=== PATIENT | female | born 2000 | race Caucasian/White ===

== ENCOUNTER 2023-03-16 12:14 | Emergency (ER) | payer SELFPAY ==
[~2023-03-16] VITALS: Ht 167.6 cm; Wt 56.7 kg
[2023-03-16 12:21] VITALS: BP 170/99
[2023-03-16] MEDS ORDERED: Voltaren100 GM TOP (12:51)
[2023-03-16] MEDS ORDERED: CYCL10 PO (12:51)
== END 2023-03-16 13:01 | disposition home or self-care (01) ==
LOC: ER 12:14
DX: S39.012A Strain of muscle, fascia and tendon of lower back, initial encounter (principal); Z88.0 Allergy status to penicillin; X58.XXXA Exposure to other specified factors, initial encounter; Y92.89 Other specified places as the place of occurrence of the external cause; Y99.0 Civilian activity done for income or pay
CPT/HCPCS: 99282